=== PATIENT | male | born 1950 | race Two or more races ===

== ENCOUNTER 2023-01-09 21:07 | Emergency (ER) | payer MEDICARE, OTHER ==
[~2023-01-09] VITALS: Ht 167.6 cm; Wt 70.0 kg
[2023-01-09 21:18] VITALS: TEMP 97.3
[2023-01-09 23:00] VITALS: BP 138/75; PULSE 89; RESP 18
[2023-01-09 23:00] LABS: BASOPHILS % (AUTO) 0.8 % (0.0-2.0); EOSINOPHILS % (AUTO) 2.1 % (1.0-6.0); HEMATOCRIT 36.3 % (41-53); LYMPHOCYTES # (AUTO) 1.2 K/uL (1.0-4.8); LYMPHOCYTES % (AUTO) 16.6 % (22.0-44.0); MEAN CORPUSCULAR HEMOGLOBIN 29.9 pg (26.0-34.0); MEAN CORPUSCULAR VOLUME 91 fL (80-100); MONOCYTES # (AUTO) 0.5 K/uL (0.1-1.0); MONOCYTES % (AUTO) 7.1 % (2.0-9.0); NEUTROPHILS # (AUTO) 5.2 K/uL (1.8-7.7); NEUTROPHILS % (AUTO) 73.4 % (40.0-70.0); PLATELET COUNT (AUTO) 261 K/uL (150-450); RED CELL DISTRIBUTION WIDTH 15.2 % (11.5-14.5); WHITE BLOOD COUNT (AUTO) 7.1 K/uL (4.5-11.0)
[2023-01-09 23:05] LABS: ANION GAP 11 mmol/L (8-16); CALCIUM, TOTAL 8.9 mg/dL (8.8-10.5); CARBON DIOXIDE 23 mmol/L (22-29); CHLORIDE 105 mmol/L (98-107); CREATININE 1.13 mg/dL (0.60-1.30); GLOMERULAR FILTR. RATE CALC > 60 mL/min (>60); GLUCOSE,RANDOM 165 mg/dL (70-110); POTASSIUM 3.1 mmol/L (3.5-5.1); SODIUM SERUM 139 mmol/L (136-145); UREA NITROGEN, BLOOD 17 mg/dL (7-18)
[2023-01-09 23:10] LABS: ALCOHOL, BLOOD (SERUM) 89 mg/dL (0-10)
[2023-01-09 23:13] LABS: B-TYPE NATRIURETIC PEPTIDE 74 pg/mL (0-100); TROPONIN I-HIGH SENSITIVITY 13 ng/L (<76)
[2023-01-09 23:30] LABS: ALANINE AMINOTRANSFERASE 25 U/L (12-78); ALBUMIN 3.1 g/dL (3.4-5.0); ALKALINE PHOSPHATASE 119 U/L (46-116); ASPARTATE AMINOTRANSFERASE 17 U/L (15-37); BILIRUBIN,TOTAL 0.1 mg/dL (0.1-1.0); CREATINE KINASE, TOTAL ONLY 93 U/L (39-308); TOTAL PROTEIN, SERUM 6.3 g/dL (6.4-8.2)
[2023-01-09 23:36] LABS: APPEARANCE,URINE CLEAR (CLEAR); BILIRUBIN,URINE NEGATIVE (NEGATIVE); COLOR,URINE COLORLESS (YELLOW); GLUCOSE, URINE (UA) TRACE mg/dL (NEGATIVE); KETONES,URINE NEGATIVE (NEGATIVE); LEUKOCYTE ESTERASE ,URINE NEGATIVE (NEGATIVE); NITRATE,URINE NEGATIVE (NEGATIVE); OCCULT BLOOD,URINE NEGATIVE (NEGATIVE); PROTEIN,URINE NEGATIVE (NEGATIVE); SPECIFIC GRAVITIY, URINE 1.005 (1.003-1.030); UROBILINOGEN,URINE <=1.0 mg/dL (<=1.0)
[2023-01-09 23:40] LABS: ALCOHOL, URINE DRUG SCREEN POSITIVE (NEGATIVE); AMPHET/METH SCREEN,URINE NEGATIVE (NEGATIVE); BARBITURATE SCREEN, URINE NEGATIVE (NEGATIVE); BENZODIAZEPINES SCREEN,URINE NEGATIVE (NEGATIVE); CANNABINOID SCREEN,URINE NEGATIVE (NEGATIVE); COCAINE SCREEN,URINE NEGATIVE (NEGATIVE); METHADONE SCREEN, URINE NEGATIVE (NEGATIVE); OPIATE SCREEN,URINE NEGATIVE (NEGATIVE); PHENCYCLIDINE SCREEN,URINE NEGATIVE (NEGATIVE)
[2023-01-10] MEDS ORDERED: POTASSIUM CHLORIDE 20 MEQ ER TABLET PO ONE (00:30)
[2023-01-10] MEDS ORDERED: AZIT250T9 PO (22:40)
== END 2023-01-10 00:54 | disposition home or self-care (01) ==
LOC: EMS 21:07
DX: E87.6 Hypokalemia (principal); R00.2 Palpitations; F17.210 Nicotine dependence, cigarettes, uncomplicated
CPT/HCPCS: 99285; 71045; 80053; 81003; 82550; 83880; 84484; 85025; 36415; 93005; 80307; G0480

== ENCOUNTER 2023-01-10 18:42 | Emergency (ER) | payer MEDICARE, OTHER ==
[~2023-01-10] VITALS: Ht 160 cm; Wt 68.2 kg
[2023-01-10 19:21] VITALS: TEMP 98.6
[2023-01-10] MEDS ORDERED: TraMADol HCL 50 MG TABLET PO ONE (20:00)
[2023-01-10 20:22] LABS: BASOPHILS % (AUTO) 0.7 % (0.0-2.0); EOSINOPHILS % (AUTO) 2.6 % (1.0-6.0); HEMATOCRIT 31.4 % (41-53); HEMOGLOBIN 10.4 g/dL (13.5-17.5); LYMPHOCYTES # (AUTO) 1.4 K/uL (1.0-4.8); LYMPHOCYTES % (AUTO) 24.2 % (22.0-44.0); MEAN CORPUSCULAR HEMOGLOBIN 29.9 pg (26.0-34.0); MEAN CORPUSCULAR HGB CONC 33.1 G/dL (31.0-37.0); MEAN CORPUSCULAR VOLUME 90 fL (80-100); MONOCYTES # (AUTO) 0.4 K/uL (0.1-1.0); MONOCYTES % (AUTO) 6.8 % (2.0-9.0); NEUTROPHILS # (AUTO) 3.7 K/uL (1.8-7.7); NEUTROPHILS % (AUTO) 65.7 % (40.0-70.0); PLATELET COUNT (AUTO) 241 K/uL (150-450); RED BLOOD CELL COUNT(AUTO) 3.48 MIL/uL (4.50-5.90); RED CELL DISTRIBUTION WIDTH 15.2 % (11.5-14.5)
[2023-01-10 20:29] LABS: ANION GAP 10 mmol/L (8-16); CARBON DIOXIDE 23 mmol/L (22-29); CHLORIDE 106 mmol/L (98-107); CREATININE 0.85 mg/dL (0.60-1.30); GLOMERULAR FILTR. RATE CALC > 60 mL/min (>60); GLUCOSE,RANDOM 194 mg/dL (70-110); POTASSIUM 3.6 mmol/L (3.5-5.1); SODIUM SERUM 138 mmol/L (136-145)
[2023-01-10 20:35] LABS: B-TYPE NATRIURETIC PEPTIDE 59 pg/mL (0-100); INR 1.1 (0.9-1.1)
[2023-01-10 20:54] LABS: ALANINE AMINOTRANSFERASE 19 U/L (12-78); ALBUMIN 2.8 g/dL (3.4-5.0); ALKALINE PHOSPHATASE 95 U/L (46-116); ASPARTATE AMINOTRANSFERASE 15 U/L (15-37); BILIRUBIN,TOTAL 0.1 mg/dL (0.1-1.0); CREATINE KINASE, TOTAL ONLY 91 U/L (39-308); TOTAL PROTEIN, SERUM 5.5 g/dL (6.4-8.2)
[2023-01-10 22:10] LABS: APPEARANCE,URINE CLEAR (CLEAR); BILIRUBIN,URINE NEGATIVE (NEGATIVE); GLUCOSE, URINE (UA) 70-100 mg/dL (NEGATIVE); KETONES,URINE NEGATIVE (NEGATIVE); LEUKOCYTE ESTERASE ,URINE NEGATIVE (NEGATIVE); NITRATE,URINE NEGATIVE (NEGATIVE); OCCULT BLOOD,URINE NEGATIVE (NEGATIVE); PROTEIN,URINE NEGATIVE (NEGATIVE); SPECIFIC GRAVITIY, URINE 1.008 (1.003-1.030); UROBILINOGEN,URINE <=1.0 mg/dL (<=1.0)
[2023-01-10 22:16] LABS: AMPHET/METH SCREEN,URINE NEGATIVE (NEGATIVE); BARBITURATE SCREEN, URINE NEGATIVE (NEGATIVE); BENZODIAZEPINES SCREEN,URINE NEGATIVE (NEGATIVE); CANNABINOID SCREEN,URINE NEGATIVE (NEGATIVE); COCAINE SCREEN,URINE NEGATIVE (NEGATIVE); METHADONE SCREEN, URINE NEGATIVE (NEGATIVE); OPIATE SCREEN,URINE NEGATIVE (NEGATIVE); PHENCYCLIDINE SCREEN,URINE NEGATIVE (NEGATIVE)
[2023-01-10 22:20] LABS: BACTERIA,URINE None Seen /HPF (None Seen); RBC,URINE None Seen /HPF (0-2); SQUAMOUS EPITHELIAL CELL,UR None Seen /LPF (None Seen); WBC,URINE None Seen /HPF (0-5)
[2023-01-10] MEDS ORDERED: AZIT250T9 PO (22:40)
[2023-01-10] MEDS ORDERED: AZITHROMYCIN 500 MG TABLET PO ONE (22:45)
[2023-01-11 08:30] VITALS: BP 165/90; PULSE 90; RESP 19
== END 2023-01-11 10:25 | disposition home or self-care (01) ==
LOC: EMS 18:42
DX: J18.9 Pneumonia, unspecified organism (principal); F10.129 Alcohol abuse with intoxication, unspecified; F17.210 Nicotine dependence, cigarettes, uncomplicated; Y90.9 Presence of alcohol in blood, level not specified
CPT/HCPCS: 99285; 71045; 80053; 82550; 83880; 84484; 85025; 85610; 85730; 36415; 93005; 80307; 81001; Q9967; G0480

== ENCOUNTER 2024-01-05 10:44 | Emergency (ER) | payer MEDICARE, MEDICAID ==
[~2024-01-05] VITALS: Ht 167.6 cm; Wt 62.8 kg
[~2024-01-05 10:44] MED LIST: ACET-2895 PO; CHOL25TA4 PO; CLOB15CR10 TP; CLON0.1T2 PO; CYAN500T56 PO; DIPH50CA37 PO; HYDR25TA84 PO; INSLAN SQ; INSU100V SQ; IPRA3AMP24 IH; LOSA-382 PO; MELA5TAB40 PO; MULT-1203 PO; NUT.237L28 PO; PANT-31 PO; SITA100 PO
[2024-01-05 12:01] VITALS: TEMP 98
[2024-01-05 14:11] LABS: APPEARANCE,URINE CLEAR (CLEAR); BILIRUBIN,URINE NEGATIVE (NEGATIVE); COLOR,URINE COLORLESS (YELLOW); GLUCOSE, URINE (UA) NEGATIVE (NEGATIVE); KETONES,URINE NEGATIVE (NEGATIVE); LEUKOCYTE ESTERASE ,URINE NEGATIVE (NEGATIVE); NITRATE,URINE NEGATIVE (NEGATIVE); OCCULT BLOOD,URINE NEGATIVE (NEGATIVE); PROTEIN,URINE NEGATIVE (NEGATIVE); SPECIFIC GRAVITIY, URINE 1.006 (1.003-1.030); UROBILINOGEN,URINE <=1.0 mg/dL (<=1.0)
[2024-01-05 14:13] LABS: BASOPHILS % (AUTO) 0.7 % (0.0-2.0); HEMOGLOBIN 13.2 g/dL (13.5-17.5); LYMPHOCYTES # (AUTO) 1.9 K/uL (1.0-4.8); LYMPHOCYTES % (AUTO) 27.6 % (22.0-44.0); MEAN CORPUSCULAR HEMOGLOBIN 29.5 pg (26.0-34.0); MEAN CORPUSCULAR HGB CONC 33.8 G/dL (31.0-37.0); MEAN CORPUSCULAR VOLUME 87 fL (80-100); MONOCYTES # (AUTO) 0.5 K/uL (0.1-1.0); MONOCYTES % (AUTO) 7.5 % (2.0-9.0); NEUTROPHILS # (AUTO) 4.2 K/uL (1.8-7.7); NEUTROPHILS % (AUTO) 61.2 % (40.0-70.0); PLATELET COUNT (AUTO) 236 K/uL (150-450); RED BLOOD CELL COUNT(AUTO) 4.47 MIL/uL (4.50-5.90); RED CELL DISTRIBUTION WIDTH 15.3 % (11.5-14.5); WHITE BLOOD COUNT (AUTO) 6.9 K/uL (4.5-11.0)
[2024-01-05 14:34] LABS: CALCIUM, TOTAL 9.5 mg/dL (8.8-10.5); CREATININE 1.29 mg/dL (0.60-1.30); POTASSIUM 4.4 mmol/L (3.5-5.1)
[2024-01-05 14:39] LABS: ALBUMIN 3.8 g/dL (3.4-5.0); BILIRUBIN,DIRECT 0.1 mg/dL (0.00-0.20); BILIRUBIN,TOTAL 0.3 mg/dL (0.1-1.0); TOTAL PROTEIN, SERUM 7.6 g/dL (6.4-8.2)
[2024-01-05] MEDS: ACETAMINOPHEN 325 MG TABLET PO ONE (15:08)
[2024-01-05] MEDS ORDERED: IOHEXOL 300 MG/ML 100 ML VIAL ONE (16:07)
[2024-01-05] MEDS ORDERED: SODIUM CHLORIDE 0.9% 100 ML ONE (16:07)
[2024-01-05] MEDS ORDERED: 0.9% SODIUM CHLORIDE 10 ML SYRINGE IVP ONE (16:07)
[2024-01-05] MEDS: SODIUM CHLORIDE 0.9% 1,000 ML IV ONE (16:34)
[2024-01-05 17:41] VITALS: BP 151/59; PULSE 54; RESP 18
== END 2024-01-05 21:07 | disposition home or self-care (01) ==
LOC: EMS 10:44
DX: K59.00 Constipation, unspecified (principal); J44.9 Chronic obstructive pulmonary disease, unspecified; E11.9 Type 2 diabetes mellitus without complications; I10 Essential (primary) hypertension; F17.210 Nicotine dependence, cigarettes, uncomplicated
CPT/HCPCS: 99285; 74177; 96360; 80048; 80076; 81003; 82962; 85025; 36415; J7030; J7050; Q9967

== ENCOUNTER 2024-01-11 19:38 | Inpatient (IN) | payer MEDICARE, MEDICAID ==
[~2024-01-11] VITALS: Ht 170.2 cm; Wt 68.2 kg
[2024-01-11 21:58] LABS: BASOPHILS % (AUTO) 0.5 % (0.0-2.0); HEMATOCRIT 37.5 % (41-53); HEMOGLOBIN 12.7 g/dL (13.5-17.5); LYMPHOCYTES # (AUTO) 1.9 K/uL (1.0-4.8); LYMPHOCYTES % (AUTO) 24.4 % (22.0-44.0); MEAN CORPUSCULAR HEMOGLOBIN 29.5 pg (26.0-34.0); MEAN CORPUSCULAR HGB CONC 33.9 G/dL (31.0-37.0); MEAN CORPUSCULAR VOLUME 87 fL (80-100); MONOCYTES # (AUTO) 0.6 K/uL (0.1-1.0); MONOCYTES % (AUTO) 7.8 % (2.0-9.0); NEUTROPHILS # (AUTO) 5.1 K/uL (1.8-7.7); NEUTROPHILS % (AUTO) 64.3 % (40.0-70.0); PLATELET COUNT (AUTO) 231 K/uL (150-450); RED BLOOD CELL COUNT(AUTO) 4.31 MIL/uL (4.50-5.90)
[2024-01-11 22:05] LABS: CALCIUM, TOTAL 9.6 mg/dL (8.8-10.5); CREATININE 1.35 mg/dL (0.60-1.30)
[2024-01-11 22:13] LABS: TROPONIN I-HIGH SENSITIVITY 5 ng/L (<76)
[2024-01-11] MEDS: ONDANSETRON 4 MG TABLET PO ONE (22:17)
[2024-01-11] MEDS: ACETAMINOPHEN 500 MG TABLET PO ONE (22:17)
[2024-01-11] MEDS: MECLIZINE HCL 25 MG TABLET PO ONE (22:17)
[2024-01-12] MEDS ORDERED: MORPHINE SULFATE 2 MG/ML SYRINGE IVP PRN (10:15)
[2024-01-12] MEDS ORDERED: IPRATROPIUM BROMIDE 0.5 MG/2.5 ML NEB SOLUTION NEB PRN (10:15)
[2024-01-12] MEDS ORDERED: MAGNESIUM HYDROXIDE SUSPENSION 30 ML UDCUP PO PRN (10:15)
[2024-01-12] MEDS ORDERED: BISACODYL 10 MG RECTAL RECTAL SUPPOSITORY PR PRN (10:15)
[2024-01-12] MEDS ORDERED: HYDROCODONE/ACETAMINOPHEN 5-325 MG TABLET PO PRN (10:15)
[2024-01-12] MEDS ORDERED: ALBUTEROL SULFATE 2.5 MG/0.5 ML NEB SOLUTION NEB PRN (10:15)
[2024-01-12] MEDS ORDERED: ONDANSETRON HCL 4 MG/2 ML VIAL IVP PRN (10:15)
[2024-01-12] MEDS ORDERED: QUET25TA PO (10:17)
[2024-01-12] MEDS ORDERED: ATOR40TA28 PO (10:17)
[2024-01-12] MEDS ORDERED: MECL-302 PO (10:17)
[2024-01-12] MEDS ORDERED: HYDR25TA2 PO (10:17)
[2024-01-12] MEDS ORDERED: METO25 PO (10:17)
[2024-01-12] MEDS ORDERED: INSLAN SQ (10:17)
[2024-01-12] MEDS ORDERED: AMLO-258 PO (10:17)
[2024-01-12] MEDS ORDERED: LOSA-382 PO (10:17)
[2024-01-12] MEDS ORDERED: ACETAMINOPHEN 325 MG TABLET PO PRN (10:45)
[2024-01-12 11:23] VITALS: BP 146/63; PULSE 60; RESP 19; TEMP 97.8; O2SAT 99
[2024-01-12] MEDS ORDERED: DEXTROSE 50%-WATER 25 GM/50 ML SYRINGE IVP PRN (12:30)
[2024-01-12 15:16] LABS: GLUCOMETER DEV NAME(LOC) 6S.2; GLUCOSE,POINT OF CARE 135 MG/DL (70-110)
[2024-01-12] MEDS: HEPARIN SODIUM,PORCINE 5,000 UNITS/ML VIAL SQ SCH (16:12)
[2024-01-12] MEDS: INSULIN LISPRO 100 UNITS/ML SQ PRN (17:35)
[2024-01-12 17:51] LABS: GLUCOMETER DEV NAME(LOC) 6S.2; GLUCOSE,POINT OF CARE 146 MG/DL (70-110)
[2024-01-12 20:23] VITALS: BP 120/58; PULSE 63; RESP 18; TEMP 98.4; O2SAT 95
[2024-01-12] MEDS: ZOLPIDEM TARTRATE 5 MG TABLET PO PRN (20:28)
[2024-01-12] MEDS: DOCUSATE SODIUM 100 MG CAPSULE PO SCH (20:28)
[2024-01-12] MEDS: MECLIZINE HCL 25 MG TABLET PO PRN (23:16)
[2024-01-13 03:16] LABS: GLUCOMETER DEV NAME(LOC) 6S.2; GLUCOSE,POINT OF CARE 205 MG/DL (70-110)
[2024-01-13 05:20] VITALS: BP 152/67; PULSE 60; RESP 17; TEMP 97.7; O2SAT 98
[2024-01-13 07:00] LABS: GLUCOMETER DEV NAME(LOC) 6S.2; GLUCOSE,POINT OF CARE 157 MG/DL (70-110)
[2024-01-13] MEDS: ATORVASTATIN CALCIUM 40 MG TABLET PO SCH (08:39)
[2024-01-13] MEDS: MULTIVITAMINS, THERAPEUTIC TABLET PO SCH (08:39)
[2024-01-13] MEDS: AmLODIPine BESYLATE 10 MG TABLET PO SCH (08:39)
[2024-01-13] MEDS: QUEtiapine FUMARATE 25 MG TABLET PO SCH (08:39)
[2024-01-13] MEDS: PANTOPRAZOLE SODIUM 40 MG/VIAL IVP SCH (08:39)
[2024-01-13] MEDS: INSULIN GLARGINE,HUM.REC.ANLOG 100 UNITS/ML SQ SCH (08:49)
[2024-01-13 08:58] VITALS: BP 137/65; PULSE 72; RESP 19; TEMP 97.5; O2SAT 95
[2024-01-13] MEDS: SitaGLIPtin PHOSPHATE 100 MG TABLET PO SCH (09:15)
[2024-01-13 12:46] LABS: GLUCOMETER DEV NAME(LOC) 6S.2; GLUCOSE,POINT OF CARE 149 MG/DL (70-110)
[2024-01-13 12:46] LABS: GLUCOMETER DEV NAME(LOC) 6S.2; GLUCOSE,POINT OF CARE 139 MG/DL (70-110)
[2024-01-13 17:39] VITALS: BP 126/63; PULSE 65; RESP 18; TEMP 98.5; O2SAT 96
[2024-01-13 19:01] LABS: GLUCOMETER DEV NAME(LOC) 6S.2; GLUCOSE,POINT OF CARE 138 MG/DL (70-110)
[2024-01-13] MEDS: ACETAMINOPHEN 325 MG TABLET PO PRN (20:48)
[2024-01-13 20:49] VITALS: BP 131/64; PULSE 63; RESP 16; TEMP 98.2; O2SAT 98
[2024-01-13 22:35] LABS: GLUCOMETER DEV NAME(LOC) 6S.2; GLUCOSE,POINT OF CARE 147 MG/DL (70-110)
[2024-01-14 05:34] VITALS: BP 153/76; PULSE 70; RESP 18; TEMP 97.4; O2SAT 99
[2024-01-14 07:16] LABS: GLUCOMETER DEV NAME(LOC) 6S.2; GLUCOSE,POINT OF CARE 130 MG/DL (70-110)
[2024-01-14 09:39] VITALS: BP 134/69; PULSE 74; RESP 20; TEMP 98.3; O2SAT 99
[2024-01-14 12:00] LABS: GLUCOMETER DEV NAME(LOC) 6S.2; GLUCOSE,POINT OF CARE 176 MG/DL (70-110)
== END 2024-01-14 11:30 | DRG 74 ==
LOC: EMS 19:38 → EDH 01-12 02:25 → 6S 01-12 10:58
PROVIDERS: ADMIT Internal Medicine; ATTEND Internal Medicine
DX: G90.8 Other disorders of autonomic nervous system (principal); I42.9 Cardiomyopathy, unspecified; E11.51 Type 2 diabetes mellitus with diabetic peripheral angiopathy without gangrene; K21.9 Gastro-esophageal reflux disease without esophagitis; I10 Essential (primary) hypertension; F32.9 Major depressive disorder, single episode, unspecified; D64.9 Anemia, unspecified; J44.9 Chronic obstructive pulmonary disease, unspecified; G47.00 Insomnia, unspecified; Z86.73 Personal history of transient ischemic attack (TIA), and cerebral infarction without residual deficits; Z87.891 Personal history of nicotine dependence; Z79.899 Other long term (current) drug therapy
CPT/HCPCS: 70450; 80048; 82962; 84484; 85025; 87481; 93005; 93880; 99285; C9113; J1644; J1815; Q0162